=== PATIENT | male | born 1985 | race Caucasian/White ===

== ENCOUNTER 2020-09-16 10:43 | Day surgery (SDC) | payer OTHER ==
[~2020-09-16] VITALS: Ht 195.6 cm; Wt 131.1 kg
[~2020-09-16 10:43] MED LIST: ALBU90OI6 INH; CYCL10 PO; Crutch1 EACH MISC; FLONASE SENSIM5.9 M1; Flonase 0.05% N16 GM; HEART BURN; NAPR220; Norco 10-325 T1 EACH PO; Norco 5-325 Ta1 EACH PO; OMEP20ER PO; PANT40 PO; SYMBICORT 160-4.6 GM INH; SYMBICORT 80-10.2 GM INH; Vibramycin100 MG PO; ZYRTEC10 M2 PO
== END 2020-09-16 14:41 | disposition home or self-care (01) ==
LOC: ORSCSDS 10:43
PROVIDERS: Surgery
PROC: 0DJD8ZZ Inspection of Lower Intestinal Tract, Via Natural or Artificial Opening Endoscopic (ICD-10-PCS; principal; 2020-09-16 13:00)
PROC: 0DB68ZX Excision of Stomach, Via Natural or Artificial Opening Endoscopic, Diagnostic (ICD-10-PCS; principal; 2020-09-16 13:00)
PROC: 0DB48ZX Excision of Esophagogastric Junction, Via Natural or Artificial Opening Endoscopic, Diagnostic (ICD-10-PCS; principal; 2020-09-16 13:00)
DX: K62.5 Hemorrhage of anus and rectum (principal); K44.9 Diaphragmatic hernia without obstruction or gangrene; K21.00 Gastro-esophageal reflux disease with esophagitis, without bleeding; K64.8 Other hemorrhoids; K64.4 Residual hemorrhoidal skin tags; K29.70 Gastritis, unspecified, without bleeding; Z87.891 Personal history of nicotine dependence; J45.909 Unspecified asthma, uncomplicated; Z79.899 Other long term (current) drug therapy
CPT/HCPCS: 88305; 88342; J2250; J2704; J7120